=== PATIENT | female | born 1975 | race Caucasian/White ===

== ENCOUNTER → 2018-06-24 13:03 | Outpatient (CLI) | payer SELFPAY ==
--- NOTE | 2018-06-24 13:45 | MRI_ITS ---
STUDY: MRI LUMBAR SPINE WITHOUT CONTRAST REASON FOR EXAM: Female, 43 years old. Low back pain and right leg pain TECHNIQUE: Standardized fat and water weighted pulse sequences were obtained in the sagittal and axial planes. COMPARISON: None FINDINGS: T12-L1: Normal endplates. Normal disc height, hydration and morphology. Normal bilateral facet joints. Normal central canal and bilateral lateral recesses. Normal bilateral intervertebral neural foramina. Normal lumbar lordosis. There is no substantial scoliosis. Normal conus medullaris that terminates at the L1 level. L1-2: Normal endplates. Normal disc height, hydration and morphology. Normal bilateral facet joints. Normal central canal and bilateral lateral recesses. Normal bilateral intervertebral neural foramina. L2-3: Bulging annulus and bilateral facet hypertrophy without compressive sequelae. L3-4: Bulging annulus and bilateral facet hypertrophy without compressive sequelae. L4-5: Bulging annulus and bilateral facet hypertrophy with mild right foraminal stenosis. L5-S1: Normal disc. Bilateral facet hypertrophy. Normal visualized sacral ala. Normal visualized paraspinous soft tissue structures. Left renal cyst. MRI/Spine Lumbar (Routine) IMPRESSION: Multilevel degenerative disease as described. No evidence of nerve root impingement. Electronically Signed: Chandler Garner MD at 14:20 EDT Tel , Service support ,
== END ==
PROVIDERS: Family Provider Internal Medicine; PCP Internal Medicine; Referring Provider Internal Medicine; Visit Provider Internal Medicine
DX: M54.30 Sciatica, unspecified side (principal)
CPT/HCPCS: 72148